=== PATIENT | female | born 1985 | race African-American/Black ===

== ENCOUNTER 2018-09-22 10:46 | Emergency (ER) | payer OTHER, SELFPAY ==
[2018-09-22 11:03] VITALS: BP 131/87; PULSE 80; RESP 14; TEMP 36.6; O2SAT 100
== END 2018-09-22 13:40 | disposition left against medical advice (07) ==
PROVIDERS: Emergency Provider Emergency Medicine
DX: R21 Rash and other nonspecific skin eruption (principal)
CPT/HCPCS: 99281; 99282